=== PATIENT | female | born 1955 | race Caucasian/White ===

== ENCOUNTER → 2017-01-23 | Outpatient (REF) | payer OTHER ==
[~2017-01-23] MED LIST: *PREMTA OR; /PANT40TA OR; ANAS1TAB PO; CALC600T57 PO; FISH1000 OR; GABA-282 PO; LEVOTAB10 PO; LOVA10TA OR; MULTCAP8 PO; NORC1TAB4 PO; PANT40TA2 PO; PREM0.6254 PO; TRIA37.53 PO; VITA20008 PO; VITACAP31 OR; [UNRECOGNIZED DRUG - OTHER] OR
== END ==
LOC: M LAB REF 18:24
PROVIDERS: ATTEND Internal Medicine Medical Oncology
DX: C50.919 Malignant neoplasm of unspecified site of unspecified female breast (principal)

== ENCOUNTER → 2017-01-30 | Outpatient (CLI) | payer BC, OTHER ==
--- NOTE | 2017-01-30 15:03 | REP ---
Chest x-ray: Two views. History: Malignant neoplasm of the breast. Comparison study: November 02, 2015. Findings: The patient is status post bilateral mastectomy implantation of bilateral tissue expanders. The lungs are well inflated and otherwise clear. There are old healed rib fractures on the right anteriorly. The pleural angles are sharp. Heart size is normal. Pulmonary vasculature is not increased. Impression: Status post bilateral mastectomy and tissue bead wrapper implants. No active disease. Signed by Enrique Bailey MD 01/30/2017 03:09 P
[2017-01-30 17:52] LABS: INR 0.88
[2017-01-30 20:07] LABS: ANION GAP 6 MEQ/L (8-16); BLOOD UREA NITROGEN 20 MG/DL (7-18); CALCIUM LEVEL 9.6 MG/DL (8.8-10.2); CARBON DIOXIDE LEVEL 30 MEQ/L (21-32); CHLORIDE LEVEL 105 MEQ/L (98-107); CREATININE FOR GFR 0.68 MG/DL (0.55-1.02); GLOMERULAR FILTRATION RATE > 60.0 (>45); GLUCOSE, FASTING 91 MG/DL (80-110); POTASSIUM SERUM 4.8 MEQ/L (3.5-5.1); SODIUM LEVEL 141 MEQ/L (136-145)
== END ==
LOC: M SMT 11:51
PROVIDERS: ATTEND Thoracic Surgery (Cardiothoracic Vascular Surgery)
DX: Z01.818 Encounter for other preprocedural examination (principal); C50.912 Malignant neoplasm of unspecified site of left female breast; C50.211 Malignant neoplasm of upper-inner quadrant of right female breast; Z90.13 Acquired absence of bilateral breasts and nipples

== ENCOUNTER 2017-01-31 12:20 | Day surgery (SDC) | payer BC, OTHER ==
[~2017-01-31] VITALS: Ht 152.4 cm; Wt 73.9 kg
[~2017-01-31 12:20] MED LIST changes: -ANAS1TAB PO; +LIDOCAINE 2% INJ 100 MG/5 ML SDV (FOR ANES.) As Ordered ONE; +MIDAZOLAM INJ 2 MG/2 ML VIAL (J2250) As Ordered ONE; +ONDANSETRON 4MG/2ML VIAL (J2405) As Ordered ONE; +PROPOFOL 200 MG/20 ML VIAL As Ordered ONE; +fentaNYL 100 MCG/2 ML INJECTION (J3010) As Ordered ONE
[2017-01-31] MEDS ORDERED: MUPIROCIN 2% OINT 22 GM TUBE TOP ONE (12:45)
[2017-01-31] MEDS ORDERED: LIDOCAINE 1% SDV 5 ML VIAL SQ ONE (14:30)
[2017-01-31] MEDS ORDERED: LR 1,000 ML IV ONE (14:30)
[2017-01-31] MEDS ORDERED: BUPIVACAINE LIPOSOME/PF 1.3% 20 ML VIAL (13.3MG/ML)(EXPAREL) As Ordered ONE (14:58)
[2017-01-31] MEDS ORDERED: LIDOCAINE 1% MDV 20ML VIAL As Ordered ONE (14:58)
[2017-01-31] MEDS ORDERED: HEPARIN SOD (PORCINE) 5000 UNITS/ML VIAL As Ordered ONE (14:58)
--- NOTE | 2017-01-31 15:10 | ECGEPIP ---
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
--- NOTE | 2017-01-31 16:27 | REP ---
Partial chest x-ray: Two views: History: Abnormal x-ray. 15 seconds of fluoroscopy time is reported. Findings: A sequence of two last image hold fluoroscopic spot radiographs of the chest document Xnyuoi-M-Zpeg catheter position. Signed by Enrique Bailey MD 01/31/2017 04:57 P
--- NOTE | 2017-01-31 16:58 | REP ---
Chest one-view HISTORY: Bgjqje-Q-Svxg insertion Comparison: 01/30/2017 The lungs are clear. The heart is normal in size. The pulmonary vasculature is normal in appearance. The patient is status post Nugoar-N-Mtmc insertion in the right atrium. There is no pneumothorax. The patient is status post bilateral mastectomy. Impression: No acute disease. Signed by Pierre Wiley MD 01/31/2017 04:46 P
[2017-01-31] MEDS ORDERED: PERCOCET 5MG/325MG TAB PO PRN (18:00)
--- NOTE | 2017-02-02 09:17 | RO ---
DATE OF PROCEDURE: 01/31/2017 PREPROCEDURE DIAGNOSES: Breast cancer, need for vascular access for chemotherapy. POSTPROCEDURE DIAGNOSES: Breast cancer, need for vascular access for chemotherapy. PROCEDURE: Insertion of a right subclavian Otuydz-C-Cfpr with fluoroscopic control. SURGEON: Dong Church MD FOUR SLIDE MACHINE SETTER: ANESTHESIA: FINDINGS: All contours were smooth at the end of the procedure. DESCRIPTION OF PROCEDURE: Under satisfactory monitored anesthesia care (MAC) anesthesia, the patient was prepped and draped in the usual sterile fashion. The subclavian vein was found on the second pass, and a wire was placed without difficulty and confirmed with fluoroscopy. The subclavian fossa was infiltrated with 1% Xylocaine. The port site was chosen so as to generously clear her tissue expanders. Infiltrated with Exparel, incision was made, and a subcutaneous pocket was created using electrocautery and blunt dissection. Hemostasis was achieved. The wire site was incised and dilated. A peel-away introducer was placed. The wire was removed, and the catheter was placed with the peel-away introducer, which was itself removed. A tunnel was created from between the port site and the wire site. The catheter was pulled through the tunnel and positioned under fluoroscopic control at the junction of the superior vena cava and the right atrium. The catheter was cut to the appropriate size. The collar was placed, and the port was connected. It was flushed with saline and flushed well. A final flush of 100 units per mL of heparin was then instilled. The port was then secured to the chest wall with two 2-0 silk sutures. The subcutaneous tissue was closed with running 3-0 Vicryl suture, and the skin was closed with running 4-0 Monocryl subcuticular suture. The patient tolerated the procedure well and left the operating room in satisfactory condition. A chest x-ray is pending.
[2017-02-28] MEDS ORDERED: ANAS1TAB PO (14:41)
== END 2017-01-31 17:15 | disposition home or self-care (01) ==
LOC: M SDC 12:20
PROVIDERS: ATTEND Thoracic Surgery (Cardiothoracic Vascular Surgery)
DX: Z45.2 Encounter for adjustment and management of vascular access device (principal); C50.912 Malignant neoplasm of unspecified site of left female breast; Z90.13 Acquired absence of bilateral breasts and nipples; K21.9 Gastro-esophageal reflux disease without esophagitis; G89.28 Other chronic postprocedural pain; K44.9 Diaphragmatic hernia without obstruction or gangrene; J42 Unspecified chronic bronchitis; I10 Essential (primary) hypertension; K58.9 Irritable bowel syndrome, unspecified; J30.9 Allergic rhinitis, unspecified; Z87.891 Personal history of nicotine dependence; Z88.8 Allergy status to other drugs, medicaments and biological substances; Z88.3 Allergy status to other anti-infective agents; Z79.899 Other long term (current) drug therapy
CPT/HCPCS: 36561; 71010; 76000; 93005; C1788; J0690; J2250; J2405; J3010

== ENCOUNTER → 2017-02-02 | Outpatient (CLI) | payer BC, OTHER ==
[~2017-02-02] MED LIST changes: +ANAS1TAB PO; +GASTROGRAFIN SOLUTION 30ML (Q9963) As Ordered ONE; +ISOVUE-370 76% 100ML VIAL (Q9967) As Ordered ONE; -LIDOCAINE 2% INJ 100 MG/5 ML SDV (FOR ANES.) As Ordered ONE; -MIDAZOLAM INJ 2 MG/2 ML VIAL (J2250) As Ordered ONE; -ONDANSETRON 4MG/2ML VIAL (J2405) As Ordered ONE; -PROPOFOL 200 MG/20 ML VIAL As Ordered ONE; -fentaNYL 100 MCG/2 ML INJECTION (J3010) As Ordered ONE
--- NOTE | 2017-02-02 18:01 | REP ---
CT abdomen pelvis without and with IV contrast: With oral contrast: History: Staging for breast carcinoma. Comparison study: 03/11/2011. CT contrast dose: 100 ml of intravenous Isovue 370. CT findings: The patient is status post bilateral mastectomy with implantation of tissue expanders. The lung bases show minimal pleuroparenchymal fibrosis on the right but otherwise clear. No pleural effusion is seen. The liver and the spleen are normal in size homogeneous in texture on pre and postcontrast images. No adrenal lesion is seen. Pancreas is unremarkable. Kidneys enhance symmetrically are morphologically intact. A normal appendix is seen in the subhepatic space. No gallbladder abnormality is observed. Small and large intestinal bowel loops are normal in the abdomen and pelvis. The uterus is tipped to the right. No uterine or ovarian abnormality is seen. Urinary bladder is intact. No free fluid is seen. No abdominal wall defect noted. Bone window settings show no lytic or blastic bony destructive lesion. Impression: No significant abdominal or pelvic abnormality. Signed by Enrique Bailey MD 02/03/2017 08:32 A
== END ==
LOC: M RAD 15:02
PROVIDERS: ATTEND Internal Medicine Medical Oncology
DX: C50.919 Malignant neoplasm of unspecified site of unspecified female breast (principal)
CPT/HCPCS: 74178; Q9963; Q9967

== ENCOUNTER → 2017-02-06 | Outpatient (CLI) | payer BC, OTHER ==
[~2017-02-06] MED LIST changes: -GASTROGRAFIN SOLUTION 30ML (Q9963) As Ordered ONE; -ISOVUE-370 76% 100ML VIAL (Q9967) As Ordered ONE
--- NOTE | 2017-02-06 20:18 | REP ---
Clinical: Chest pain. History of breast cancer. Technique: PA and lateral. Comparison: 01 30 17. Findings: Srcyvt-U-Yamw identified with tip in the SVC. Bilateral mammoplasty. Mediastinum and cardiac silhouette normal. Lung barrera demonstrate chronic-appearing changes. No obvious consolidation, effusion, or pneumothorax. Skeletal structures are intact. Impression: Chronic stable changes. No obvious acute cardiopulmonary process appreciated. Signed by Alexander Costa MD 02/06/2017 08:10 P
== END ==
LOC: M SMT 10:17
PROVIDERS: ATTEND Thoracic Surgery (Cardiothoracic Vascular Surgery)
DX: C50.211 Malignant neoplasm of upper-inner quadrant of right female breast (principal); Z95.828 Presence of other vascular implants and grafts; Z98.82 Breast implant status

== ENCOUNTER → 2017-02-08 | Outpatient (CLI) | payer BC, OTHER ==
--- NOTE | 2017-02-08 23:16 | ECHO ---
DATE OF PROCEDURE: 02/08/2017 REFERRING PHYSICIAN: Daisha Kamara MD INDICATION: Chemotherapy drugs that may affect the heart. HEIGHT: 60 inches WEIGHT: 164 pounds 2D MEASUREMENTS: Left atrium: 3.8 cm Ventricular septum: 1.16 cm Posterior wall: 1.16 cm Left ventricle diastole: 3.9 cm Aortic root: 2.7 cm LVOT: 1.9 cm Inferior vena cava: 1.95 cm DOPPLER MEASUREMENTS: Aortic valve velocity: 142 cm/s LVOT: 108 cm/s LVOT VTI: 25.8 cm Mitral E velocity: 111 cm/s Mitral A velocity: 96.7 cm/s Mitral deceleration time: 144 ms Very mild tricuspid regurgitation. Trace pulmonic regurgitation. Pulmonary artery systolic [id number] mmHg by pulmonary acceleration time method. MITRAL ANNULAR TISSUE DOPPLER: E prime lateral: 11.0 cm/s DESCRIPTION: Rhythm was sinus. This is a moderately technically difficult echocardiogram. This is a 2D, M-mode, color flow Doppler and pulse wave Doppler examination that included mitral annular tissue Doppler. CONCLUSIONS: 1. Normal left ventricle internal dimensions and wall thickness. Normal regional left ventricle (LV) wall motion and wall thickening. Normal LV systolic function. Left ventricular ejection fraction (LVEF) 60-65% by visual estimate. Normal LV diastolic function. 2. Very mild aortic valve sclerosis of a three-cuspid aortic valve. 3. No pericardial effusion.
== END ==
LOC: M CARPUL 08:26
PROVIDERS: ATTEND Internal Medicine Medical Oncology
DX: C50.919 Malignant neoplasm of unspecified site of unspecified female breast (principal); R94.31 Abnormal electrocardiogram [ECG] [EKG]

== ENCOUNTER → 2017-02-27 | Outpatient (CLI) | payer BC, OTHER ==
--- NOTE | 2017-02-27 11:05 | REP ---
Chest x-ray: Two views. History: Malignant neoplasm of the breast. Comparison chest x-ray: February 06, 2017. Findings: A right-sided Craums-P-Ttfv catheter is seen with its tip terminating in the region of the right atrium unchanged. Bilateral breast tissue re-expanders are noted. Post mastectomy. There are old healed rib fractures on the right as before. No infiltrate is seen in the lung barrera. Pleural angles are sharp. Heart is not enlarged. Impression: No active disease. Xbtwmm-H-Qwdi catheter tip in the region of the right atrium. Signed by Enrique Bailey MD 02/27/2017 12:15 P
== END ==
LOC: M SMT 09:58
PROVIDERS: ATTEND Thoracic Surgery (Cardiothoracic Vascular Surgery)
DX: C50.912 Malignant neoplasm of unspecified site of left female breast (principal)

== ENCOUNTER 2017-03-02 09:27 | Day surgery (SDC) | payer BC, OTHER ==
[~2017-03-02] VITALS: Ht 152.4 cm; Wt 76.1 kg
[2017-03-02] MEDS ORDERED: BUPIVACAINE LIPOSOME/PF 1.3% 20 ML VIAL (13.3MG/ML)(EXPAREL) As Ordered ONE (09:46)
[2017-03-02] MEDS ORDERED: ceFAZolin 2 GM/D5W 50 ML IV BAG (J0690) As Ordered ONE (09:51)
[2017-03-02] MEDS ORDERED: LR 1,000 ML IV ONE (10:00)
[2017-03-02] MEDS ORDERED: MUPIROCIN 2% OINT 22 GM TUBE TOP ONE (10:00)
[2017-03-02] MEDS ORDERED: LIDOCAINE 1% SDV 5 ML VIAL SQ PRN (10:00)
[2017-03-02] MEDS ORDERED: MIDAZOLAM INJ 2 MG/2 ML VIAL (J2250) As Ordered ONE (11:11)
[2017-03-02] MEDS ORDERED: PROPOFOL 200 MG/20 ML VIAL As Ordered ONE ×2 (11:11→11:23)
[2017-03-02] MEDS ORDERED: LIDOCAINE 2% INJ 100 MG/5 ML SDV (FOR ANES.) As Ordered ONE (11:11)
[2017-03-02] MEDS ORDERED: fentaNYL 100 MCG/2 ML INJECTION (J3010) As Ordered ONE (11:11)
[2017-03-02 12:45] VITALS: BP 158/77
--- NOTE | 2017-03-02 13:50 | REP ---
Portable chest, single AP view, patient sitting: Comparison is 02/27/2017. The lung barrera are clear. Cardiac size is normal. The mary anne, mediastinum, and bony thorax are unremarkable. Impression: Negative portable chest. Sign taking Signed by Toi Fields MD 03/02/2017 01:41 P
--- NOTE | 2017-03-02 15:32 | RO ---
DATE OF PROCEDURE: 03/02/2017 PREPROCEDURE DIAGNOSIS: Retained Infusaport. POSTPROCEDURE DIAGNOSIS: Retained Infusaport SURGEON: Dong Church MD WELD INSPECTOR: ANESTHESIA: PROCEDURE: Removal of right Infusaport. DESCRIPTION OF PROCEDURE: Under satisfactory MAC anesthesia, the patient was prepped and draped in the usual sterile fashion. Exparel was infiltrated in and around the Infusaport. Incision was made and carried down to the capsule. Infusaport was closed and the catheter was removed in toto. The anchoring sutures were cut and the port was removed. There was no glistening capsule. After achieving adequate hemostasis, the wound was closed with running #3-0 Vicryl subcutaneous suture and the skin was closed with running #4-0 Monocryl subcuticular suture. The patient tolerated the procedure well and left the operating room in satisfactory condition to the recovery room.
== END 2017-03-02 12:50 | disposition home or self-care (01) ==
LOC: M SDC 09:27
PROVIDERS: ATTEND Thoracic Surgery (Cardiothoracic Vascular Surgery)
DX: Z45.2 Encounter for adjustment and management of vascular access device (principal); C50.912 Malignant neoplasm of unspecified site of left female breast; K21.9 Gastro-esophageal reflux disease without esophagitis; K52.9 Noninfective gastroenteritis and colitis, unspecified; R09.82 Postnasal drip; K44.9 Diaphragmatic hernia without obstruction or gangrene; I10 Essential (primary) hypertension; K58.9 Irritable bowel syndrome, unspecified; Z88.1 Allergy status to other antibiotic agents; Z88.5 Allergy status to narcotic agent; Z88.6 Allergy status to analgesic agent; Z88.8 Allergy status to other drugs, medicaments and biological substances; Z91.048 Other nonmedicinal substance allergy status; Z79.899 Other long term (current) drug therapy; Z87.891 Personal history of nicotine dependence; Z98.51 Tubal ligation status; Z78.0 Asymptomatic menopausal state; Z90.11 Acquired absence of right breast and nipple; Z90.12 Acquired absence of left breast and nipple
CPT/HCPCS: 36590; 71010; J0690; J2250; J3010

== ENCOUNTER → 2017-04-04 | Outpatient (CLI) | payer BC, OTHER ==
--- NOTE | 2017-04-04 10:31 | REP ---
Right hand four views: There are no comparisons. There is joint space narrowing of the DIP and PIP articulations compatible with early osteoarthritis. The MCP articulations and carpal articulations are unremarkable. Mineralization is normal. There is no fracture or dislocation. No calcifications or foreign bodies. Impression: Mild PIP and DIP joint space narrowing compatible with early osteoarthritis. Otherwise, negative right hand. Signed by Toi Fields MD 04/04/2017 10:23 A
== END ==
LOC: M SMT 09:13
PROVIDERS: ATTEND Physician Assistant Medical
DX: M19.041 Primary osteoarthritis, right hand (principal)

== ENCOUNTER → 2017-04-24 | Outpatient (CLI) | payer BC ==
--- NOTE | 2017-04-25 08:55 | DEXA ---
AP SPINE L1 - L4 0.945 -2.0 -0.6 LT FEMUR TOTAL 0.804 -1.6 -0.6 RT FEMUR TOTAL 0.724 -2.2 -1.2 TOTAL BODY TOTAL OTHER DUAL FEMUR FRAX* ASSESSMENT Risk factors: 10 year probability of fracture Major osteoporotic fracture % Hip fracture % COMMENTS: There is low bone density of the spine and hips. The increased density of the spine does not represent a significant change. The decreased density of the left hip does represent a significant change. The decreased density of the right hip does represent a significant change. The density of the spine has decreased 2.3% since the initial exam on 2005. The spine density has increased 0.2% since the most recent exam on 09/08/2011. The density of the left hip has decreased 4.6% since the initial exam on 2005. The density of the left hip has decreased 2.5% since the most recent exam on . The density of the right hip has decreased 9.8% since the initial exam on 2005. The density of the right hip has decreased 5.9% since the most recent exam on . FOLLOW-UP: Recommendation for the next bone density exam: 2 years. DARIEL
== END ==
LOC: M WHC 09:44
PROVIDERS: ATTEND Internal Medicine Medical Oncology
DX: C50.919 Malignant neoplasm of unspecified site of unspecified female breast (principal); Z79.899 Other long term (current) drug therapy

== ENCOUNTER → 2017-11-11 | Outpatient (CLI) | payer BC ==
[2017-11-11 12:36] LABS: BASO # 0.1 10^3/uL (0.0-0.2); BASO % 0.7 % (0.0-1.0); EOS # 0.3 10^3/uL (0.0-0.50); EOS % 3.2 % (0.0-3.0); HEMATOCRIT 38.9 % (36.0-47.0); HEMOGLOBIN 12.9 g/dl (12.0-15.5); IMMATURE GRANULOCYTE % 0.2 % (0-3.0); LYMPH # 3.1 10^3/uL (1.5-4.5); LYMPH % 34.5 % (24.0-44.0); MEAN CORPUSCULAR HEMOGLOBIN 28.5 pg (27.0-33.0); MEAN CORPUSCULAR HGB CONC 33.2 g/dl (32.0-36.5); MEAN CORPUSCULAR VOLUME 86.1 fl (80.0-96.0); MONO # 0.6 10^3/uL (0.0-0.8); MONO % 6.8 % (0.0-5.0); NEUTROPHILS # 4.9 10^3/uL (1.8-7.7); NEUTROPHILS % 54.6 % (36.0-66.0); PLATELET COUNT, AUTOMATED 366 10^3/uL (150-450); RED BLOOD COUNT 4.52 10^6/uL (4.00-5.40); RED CELL DISTRIBUTION WIDTH 12.4 % (11.5-14.5)
[2017-11-11 13:05] LABS: ALBUMIN 3.9 GM/DL (3.2-5.2); ALBUMIN/GLOBULIN RATIO 1.18 (1.00-1.93); ALKALINE PHOSPHATASE 172 U/L (45-117); ALT/SGPT 52 U/L (12-78); ANION GAP 6 MEQ/L (8-16); AST/SGOT 20 U/L (7-37); BILIRUBIN,TOTAL 0.3 MG/DL (0.2-1.0); BLOOD UREA NITROGEN 21 MG/DL (7-18); CALCIUM LEVEL 9.2 MG/DL (8.8-10.2); CARBON DIOXIDE LEVEL 29 MEQ/L (21-32); CHLORIDE LEVEL 106 MEQ/L (98-107); CHOLESTEROL LEVEL 232 MG/DL (<200); CHOLESTEROL RISK RATIO 4.296 (<5); CREATININE FOR GFR 0.65 MG/DL (0.55-1.30); GLOMERULAR FILTRATION RATE > 60.0 (>45); GLUCOSE, FASTING 91 MG/DL (70-100); HDL CHOLESTEROL 54 MG/DL (>40); LDL CHOLESTEROL 132.8 MG/DL (<100); NON-HDL-C 178 MG/DL; POTASSIUM SERUM 3.9 MEQ/L (3.5-5.1); SODIUM LEVEL 141 MEQ/L (136-145); THYROID STIMULATING HORMONE 0.652 uIU/ML (0.358-3.740); TOTAL PROTEIN 7.2 GM/DL (6.4-8.2); TRIGLYCERIDES LEVEL 226 MG/DL (<150)
== END ==
LOC: M LAB 11:46
DX: I11.9 Hypertensive heart disease without heart failure (principal); E78.2 Mixed hyperlipidemia; K21.9 Gastro-esophageal reflux disease without esophagitis
CPT/HCPCS: 84443

== ENCOUNTER → 2018-01-05 | Outpatient (CLI) | payer BC, OTHER ==
[2018-01-05 13:41] LABS: BASO # 0.1 10^3/uL (0.0-0.2); BASO % 0.7 % (0.0-1.0); EOS # 0.3 10^3/uL (0.0-0.50); EOS % 3.3 % (0.0-3.0); HEMATOCRIT 38.4 % (36.0-47.0); HEMOGLOBIN 12.4 g/dl (12.0-15.5); IMMATURE GRANULOCYTE % 0.5 % (0-3.0); LYMPH # 2.5 10^3/uL (1.5-4.5); LYMPH % 28.8 % (24.0-44.0); MEAN CORPUSCULAR HEMOGLOBIN 28.2 pg (27.0-33.0); MEAN CORPUSCULAR HGB CONC 32.3 g/dl (32.0-36.5); MEAN CORPUSCULAR VOLUME 87.3 fl (80.0-96.0); MONO # 0.5 10^3/uL (0.0-0.8); MONO % 6.2 % (0.0-5.0); NEUTROPHILS # 5.3 10^3/uL (1.8-7.7); NEUTROPHILS % 60.5 % (36.0-66.0); PLATELET COUNT, AUTOMATED 382 10^3/uL (150-450); RED CELL DISTRIBUTION WIDTH 13.2 % (11.5-14.5); WHITE BLOOD COUNT 8.7 10^3/uL (4.0-10.0)
[2018-01-05 14:07] LABS: ALBUMIN 3.9 GM/DL (3.2-5.2); ALBUMIN/GLOBULIN RATIO 1.11 (1.00-1.93); ALKALINE PHOSPHATASE 171 U/L (45-117); ALT/SGPT 59 U/L (12-78); ANION GAP 8 MEQ/L (8-16); AST/SGOT 31 U/L (7-37); BILIRUBIN,TOTAL 0.3 MG/DL (0.2-1.0); BLOOD UREA NITROGEN 22 MG/DL (7-18); C REACTIVE PROTEIN QUANTITATIV 0.47 MG/DL (0.00-0.30); CALCIUM LEVEL 9.2 MG/DL (8.8-10.2); CARBON DIOXIDE LEVEL 29 MEQ/L (21-32); CHLORIDE LEVEL 105 MEQ/L (98-107); GLOMERULAR FILTRATION RATE > 60.0 (>45); GLUCOSE, FASTING 86 MG/DL (70-100); POTASSIUM SERUM 4.2 MEQ/L (3.5-5.1); RHEUMATOID FACTOR QUANT < 10.0 IU/ML (<15.0); SODIUM LEVEL 142 MEQ/L (136-145); TOTAL PROTEIN 7.4 GM/DL (6.4-8.2); URIC ACID 4.1 MG/DL (2.6-6.0)
[2018-01-05 14:21] LABS: ERYTHROCYTE SEDIMENTATION RATE 27 mm/hr (0-30)
[2018-01-09 00:07] LABS: CYCLIC CITRULLINATED PEPTIDE 4 units (0-19)
[2018-01-09 00:07] LABS: Lyme Disease IgG/IgM Antibodie <0.91 ISR (0.00-0.90); Lyme Disease IgM Ab Quantitati <0.80 index (0.00-0.79)
== END ==
LOC: M SMT 11:10
DX: M79.604 Pain in right leg (principal)
CPT/HCPCS: 84550

== ENCOUNTER → 2018-10-03 | Outpatient (REF) | payer OTHER ==
[~2018-10-03] MED LIST changes: -/PANT40TA OR; -ANAS1TAB PO; +ANAS1TAB2 PO; -GABA-282 PO; +GABA-843 PO; -NORC1TAB4 PO; +NORC1TAB7 PO; -PANT40TA2 PO; +PANT40TA3 PO; +PROT1TAB2 OR
== END ==
LOC: M LAB REF 18:11
PROVIDERS: ATTEND Family Medicine
DX: R82.90 Unspecified abnormal findings in urine (principal)

== ENCOUNTER → 2018-10-16 | Outpatient (CLI) | payer OTHER ==
[2018-10-16 12:19] LABS: BASO # 0.1 10^3/uL (0.0-0.2); BASO % 0.5 % (0.0-1.0); EOS # 0.3 10^3/uL (0.0-0.50); EOS % 2.7 % (0.0-3.0); HEMATOCRIT 44.1 % (36.0-47.0); HEMOGLOBIN 14.2 g/dl (12.0-15.5); LYMPH # 2.4 10^3/uL (1.5-4.5); LYMPH % 21.2 % (24.0-44.0); MEAN CORPUSCULAR HEMOGLOBIN 27.7 pg (27.0-33.0); MEAN CORPUSCULAR HGB CONC 32.2 g/dl (32.0-36.5); MEAN CORPUSCULAR VOLUME 86.1 fl (80.0-96.0); MONO % 9.3 % (0.0-5.0); NEUTROPHILS # 7.4 10^3/uL (1.8-7.7); NEUTROPHILS % 66.1 % (36.0-66.0); PLATELET COUNT, AUTOMATED 345 10^3/uL (150-450); RED BLOOD COUNT 5.12 10^6/uL (4.00-5.40); WHITE BLOOD COUNT 11.2 10^3/uL (4.0-10.0)
[2018-10-16 12:54] LABS: ALBUMIN 3.9 GM/DL (3.2-5.2); ALT/SGPT 36 U/L (12-78); AMYLASE 27 U/L (25-115); BILIRUBIN,TOTAL 0.5 MG/DL (0.2-1.0); BLOOD UREA NITROGEN 8 MG/DL (7-18); C REACTIVE PROTEIN QUANTITATIV 3.65 MG/DL (0.00-0.30); CALCIUM LEVEL 9.3 MG/DL (8.8-10.2); CARBON DIOXIDE LEVEL 29 MEQ/L (21-32); CHLORIDE LEVEL 104 MEQ/L (98-107); CREATININE FOR GFR 0.79 MG/DL (0.55-1.30); GLOMERULAR FILTRATION RATE > 60.0 (>45); GLUCOSE, FASTING 92 MG/DL (70-100); POTASSIUM SERUM 4.1 MEQ/L (3.5-5.1); SODIUM LEVEL 141 MEQ/L (136-145); TOTAL PROTEIN 7.7 GM/DL (6.4-8.2)
== END ==
LOC: M SMT 11:10
PROVIDERS: ATTEND Physician Assistant
DX: R47.02 Dysphasia (principal)

== ENCOUNTER → 2018-10-24 | Outpatient (CLI) | payer OTHER ==
[2018-10-24 14:23] LABS: % LABILE ALKALINE PHOSPHATASE 87.1 %; C REACTIVE PROTEIN QUANTITATIV 0.45 MG/DL (0.00-0.30); LABILE ALKPHOS 122 U/L; RHEUMATOID FACTOR QUANT < 10.0 IU/ML (<15.0); STABLE ALKPHOS 18 U/L
[2018-10-26 00:06] LABS: ANTINUCLEAR ANTIBODIES DIRECT Negative (Negative); CYCLIC CITRULLINATED PEPTIDE 2 units (0-19)
== END ==
LOC: M SMT 09:53
PROVIDERS: ATTEND Family Medicine
DX: R74.8 Abnormal levels of other serum enzymes (principal); R79.82 Elevated C-reactive protein (CRP)

== ENCOUNTER → 2018-10-24 | Outpatient (CLI) | payer BC ==
--- NOTE | 2018-10-29 09:37 | DEXA ---
AP SPINE L1 - L4 0.952 -1.9 -0.4 LT FEMUR TOTAL 0.784 -1.8 -0.6 LT NECK 0.781 -1.8 -0.4 RT FEMUR TOTAL 0.711 -2.4 -1.2 RT NECK 0.711 -2.4 -0.9 TOTAL BODY TOTAL OTHER COMMENTS: There is low bone density of the spine and hips. The density of the spine has decreased 1.6% since the initial exam on 11/22/2005. The spine density has increased 0.7% since most recent exam on 04/24/2017. The density of the left hip has decreased 7.0% since the initial exam on 11/22/2005. The density of the left hip has decreased 2.5% since the most recent exam on 04/24/2017. The density of the right hip has decreased 11.5% since the initial exam on 11/22/2005. The density of the right hip has decreased 1.8% since the most recent exam on 04/24/2017. FOLLOW-UP: Recommendation for the next bone density exam: 2 years. TAWANNAD
== END ==
LOC: M WHC 14:58
PROVIDERS: ATTEND Internal Medicine
DX: M85.9 Disorder of bone density and structure, unspecified (principal); C50.212 Malignant neoplasm of upper-inner quadrant of left female breast

== ENCOUNTER → 2018-12-07 | Outpatient (CLI) | payer BC, OTHER ==
--- NOTE | 2018-12-07 14:14 | REP ---
Whole body radionuclide bone scan: The studies performed after intravenous infusion of MDP radiolabeled with 21.2 mCi of technetium 99m. Comparison is the three-phase bone scan of the ankles and feet dated 01/19/2010. There is a normal distribution of radiotracer throughout the skeleton with the exception of mildly increased uptake in the DIP joints of the hands bilaterally. This is compatible with osteoarthritis of the fingers. The mottled increased uptake noted in the right foot on the comparison study is no longer present. Impression: Essentially negative radionuclide bone scan except for mildly increased uptake in the DIP articulations of the fingers bilaterally compatible with osteoarthritis. Electronically Signed by Toi Fields MD 12/07/2018 02:05 P
== END ==
LOC: M RAD 09:17
PROVIDERS: ATTEND Family Medicine
DX: R79.82 Elevated C-reactive protein (CRP) (principal); Z85.3 Personal history of malignant neoplasm of breast
CPT/HCPCS: 78306; A9503

== ENCOUNTER → 2018-12-31 | Outpatient (CLI) | payer BC, OTHER ==
--- NOTE | 2019-01-01 04:13 | REP ---
Clinical: Knee pain with recent trauma/fall. Technique: AP, lateral, bilateral oblique and sunrise views of the right knee. Findings: Mild generalized age-related changes are appreciated including subtle sclerosis to the tibial plateau with medial and patellofemoral joint space narrowing. Tendinopathy to the quadriceps tendon with fraying along the insertion on the patella is also appreciated. There is no effusion. There is no acute fracture or dislocation. Impression: Mild generalized age-related degenerative changes. No acute fracture or dislocation. Electronically Signed by Alexander Costa MD 01/01/2019 04:05 A
== END ==
LOC: M SMT 13:44
PROVIDERS: ATTEND Physician Assistant
DX: M17.12 Unilateral primary osteoarthritis, left knee (principal); S86.912A Strain of unspecified muscle(s) and tendon(s) at lower leg level, left leg, initial encounter; W01.0XXA Fall on same level from slipping, tripping and stumbling without subsequent striking against object, initial encounter; Y92.9 Unspecified place or not applicable

== ENCOUNTER → 2019-11-14 | Outpatient (CLI) | payer MEDICARE, BC ==
--- NOTE | 2019-11-25 10:24 | DEXA ---
AP SPINE L1 - L4 0.941 -2.0 -0.4 LT FEMUR TOTAL 0.827 -1.4 -0.2 LT NECK 0.806 -1.7 -0.2 RT FEMUR TOTAL 0.770 -1.9 -0.7 RT NECK 0.750 -2.1 -0.6 TOTAL BODY TOTAL OTHER COMMENTS: There is low bone density of the spine and hips. The decreased density of the spine does not represent a significant change. The increased density of the left hip does represent a significant change. The increased density of the right hip does represent a significant change. The density of the spine has decreased 2.7% since the initial exam on 11/22/2005. The decreased 1.2% since the most recent exam on 10/24/2018. The density of the left hip has decreased 1.9% since the initial exam on 11/22/2005. The density of the left hip has increased 5.5% since the most recent exam on 10/24/2018. The density of the right hip has decreased 4.1% since the initial exam on 11/22/2005. The density of the right hip has increased 8.3% since the most recent exam on 10/24/2018. FOLLOW-UP: Recommendation for the next bone density exam: 2 years. DARIEL
== END ==
LOC: M WHC 12:57
PROVIDERS: ATTEND Family Medicine
DX: M81.0 Age-related osteoporosis without current pathological fracture (principal); M85.851 Other specified disorders of bone density and structure, right thigh; M85.852 Other specified disorders of bone density and structure, left thigh; M85.88 Other specified disorders of bone density and structure, other site

== ENCOUNTER → 2019-11-22 | Outpatient (REF) | payer MEDICARE, OTHER | LOC: M LAB REF 16:43 | PROVIDERS: ATTEND Physician Assistant | DX: N39.0 Urinary tract infection, site not specified (principal) ==

== ENCOUNTER → 2020-02-06 | Outpatient (CLI) | payer MEDICARE, BC, OTHER ==
[~2020-02-06] MED LIST changes: +D31000TA2 PO; +LOVA10TA PO; +MULTTAB24 PO; +PANT40TA29 PO; -PANT40TA3 PO; +SING5CHW23 PO; +TAMO20TA8 PO
== END ==
LOC: M LABSMTC 10:14
PROVIDERS: ATTEND Anesthesiology
DX: Z03.818 Encounter for observation for suspected exposure to other biological agents ruled out (principal); Z11.59 Encounter for screening for other viral diseases
CPT/HCPCS: C9803; U0003

== ENCOUNTER 2020-02-11 11:58 | Day surgery (SDC) | payer MEDICARE, BC, OTHER ==
[~2020-02-11] VITALS: Ht 152.4 cm; Wt 72.6 kg
[~2020-02-11 11:58] MED LIST changes: +NS 1,000 ML IV ONE
[2020-02-11] MEDS ORDERED: fentaNYL 100 MCG/2 ML INJECTION (J3010) As Ordered ONE (14:09)
[2020-02-11] MEDS ORDERED: propofoL 200 MG/20 ML VIAL As Ordered ONE (14:09)
[2020-02-11] MEDS ORDERED: LIDOCAINE 2% 100MG/5ML SDV (FOR ANES.) As Ordered ONE (14:17)
[2020-02-11 15:26] VITALS: BP 175/79
--- NOTE | 2020-02-19 11:31 | ROOR ---
Patient Name: Loulou Mendez Procedure Date: 02/11/2020 2:04 PM Date of : 1955 Age: 64 Room: [facility] Gender: Female Note Status: Finalized Procedure: Upper Endoscopy + Biopsies Indications: Upper abdominal pain, Heartburn, Follow-up of Chapman's esophagus, Abdominal bloating, Dyspepsia Providers: Everardo Cui MD Referring MD: Olga CROWLEY DO Requesting Provider: Medicines: Monitored Anesthesia Care Complications: No immediate complications. Procedure: Pre-Anesthesia Assessment: - The heart rate, respiratory rate, oxygen saturations, blood pressure, adequacy of pulmonary ventilation, and response to care were monitored throughout the procedure. The Endoscope was introduced through the mouth, and advanced to the second part of duodenum. The upper GI endoscopy was accomplished without difficulty. The patient tolerated the procedure well. Findings: The Z-line was irregular and was found 35 cm from the incisors. Multiple biopsies were obtained with cold forceps for evaluation to rule out Chapman's Esophagus randomly at the gastroesophageal junction. A medium-sized hiatal hernia was present. No other significant abnormalities were identified in a careful examination of the stomach. Biopsies were taken with a cold forceps in the gastric antrum for Helicobacter pylori testing. The exam of the duodenum was otherwise normal. Impression: - Z-line irregular, 35 cm from the incisors. - Medium-sized hiatal hernia. - Multiple biopsies were obtained at the gastroesophageal junction. - Biopsies were taken with a cold forceps for Helicobacter pylori testing. - The examination was otherwise normal. Recommendation: - Patient has a contact number available for emergencies. The signs and symptoms of potential delayed complications were discussed with the patient. Return to normal activities tomorrow. Written discharge instructions were provided to the patient. - High fiber diet. - Discharge patient to home. - Follow an antireflux regimen. - Continue present medications. - Await pathology results. - Telephone GI clinic for pathology results in 1 week. - Return to referring physician. - The findings and recommendations were discussed with the patient. Everardo Cui MD Everardo Cui MD 02/11/2020 2:21:23 PM Number of Addenda: 0 Note Initiated On: 02/11/2020 2:04 PM Estimated Blood Loss: Estimated blood loss: none.
--- NOTE | 2020-02-19 11:31 | ROOR ---
Patient Name: Loulou Mendez Procedure Date: 02/11/2020 1:28 PM Date of : 1955 Age: 64 Room: [facility] Gender: Female Note Status: Finalized Procedure: Total Colonoscopy to Cecum Indications: Abdominal pain in the right lower quadrant, Change in bowel habits Providers: Everardo Cui MD Referring MD: Olga CROWLEY DO Requesting Provider: Medicines: Monitored Anesthesia Care Complications: No immediate complications. Procedure: Pre-Anesthesia Assessment: - The heart rate, respiratory rate, oxygen saturations, blood pressure, adequacy of pulmonary ventilation, and response to care were monitored throughout the procedure. The Colonoscope was introduced through the anus and advanced to the cecum, identified by appendiceal orifice and ileocecal valve. The colonoscopy was performed without difficulty. The patient tolerated the procedure well. The quality of the bowel preparation was excellent. Findings: The perianal and digital rectal examinations were normal. Non-bleeding internal hemorrhoids were found during retroflexion. The hemorrhoids were small and Grade I (internal hemorrhoids that do not prolapse). Multiple small and large-mouthed diverticula were found in the recto-sigmoid colon, sigmoid colon and descending colon. The exam was otherwise without abnormality on direct and retroflexion views. Impression: - Non-bleeding internal hemorrhoids. - Diverticulosis in the recto-sigmoid colon, in the sigmoid colon and in the descending colon. - The examination was otherwise normal on direct and retroflexion views. - No specimens collected. - The exam was otherwise normal to the cecum. Recommendation: - Patient has a contact number available for emergencies. The signs and symptoms of potential delayed complications were discussed with the patient. Return to normal activities tomorrow. Written discharge instructions were provided to the patient. - High fiber diet. - Discharge patient to home. - Continue present medications. - Repeat colonoscopy in 10 years for screening purposes. - Return to referring physician. - The findings and recommendations were discussed with the patient. Everardo Cui MD Everardo Cui MD 02/11/2020 2:44:19 PM Number of Addenda: 0 Note Initiated On: 02/11/2020 1:28 PM Estimated Blood Loss: Estimated blood loss: none.
== END 2020-02-11 15:25 | disposition home or self-care (01) ==
LOC: M OPP 11:58
PROVIDERS: ATTEND Internal Medicine Gastroenterology
DX: K64.0 First degree hemorrhoids (principal); K57.30 Diverticulosis of large intestine without perforation or abscess without bleeding; R10.31 Right lower quadrant pain; R19.4 Change in bowel habit; K22.8 Other specified diseases of esophagus; K44.9 Diaphragmatic hernia without obstruction or gangrene; K22.70 Barrett's esophagus without dysplasia; R10.10 Upper abdominal pain, unspecified; R12 Heartburn; R14.0 Abdominal distension (gaseous); Z79.899 Other long term (current) drug therapy; Z88.1 Allergy status to other antibiotic agents; Z88.5 Allergy status to narcotic agent; Z88.6 Allergy status to analgesic agent; Z86.010 Personal history of colon polyps; Z87.891 Personal history of nicotine dependence
CPT/HCPCS: 43239; 45378; 88305; J3010

== ENCOUNTER → 2020-11-05 | Outpatient (REF) | payer MEDICARE, OTHER ==
[~2020-11-05] MED LIST changes: +GABA-282 PO; -GABA-843 PO; -NS 1,000 ML IV ONE
== END ==
LOC: M LAB REF 16:52
PROVIDERS: ATTEND Physician Assistant
DX: R30.0 Dysuria (principal)

== ENCOUNTER → 2020-11-20 | Outpatient (CLI) | payer MEDICARE, BC, OTHER ==
--- NOTE | 2020-11-20 10:38 | REP ---
INDICATION: RUQ ABD PAIN. FINDINGS: Multiple ultrasonographic images of the liver show the hepatic parenchymal echo texture to appear unremarkable. There are no focal masses. There is no intrahepatic ductal dilatation. The common bile duct measures approximately 3 mm in its greatest transverse dimension. Multiple ultrasonographic images of the gallbladder show no focal or diffuse gallbladder wall thickening. There are no echogenic foci within the gallbladder lumen, which casts acoustic shadows. There is no pericholecystic edema. Images of the pancreatic region show no gross abnormality. The imaged portion of the right kidney is unremarkable. IMPRESSION: Unremarkable right upper quadrant ultrasound. No significant change from the prior exam. Accredited by the [employer] in General Ultrasound. <Electronically signed by Charlie Jamison > 11/20/20 103
== END ==
LOC: M RAD 08:11
PROVIDERS: ATTEND Physician Assistant
DX: R10.11 Right upper quadrant pain (principal)

== ENCOUNTER → 2021-03-29 | Outpatient (REF) | payer MEDICARE, BC, OTHER | LOC: M LAB REF 16:56 | PROVIDERS: ATTEND Family Medicine | DX: N76.0 Acute vaginitis (principal) ==

== ENCOUNTER → 2021-04-19 | Outpatient (REF) | payer MEDICARE, BC, OTHER | LOC: M LAB REF 17:07 | PROVIDERS: ATTEND Family Medicine | DX: N76.0 Acute vaginitis (principal) ==

== ENCOUNTER → 2021-04-28 | Outpatient (CLI) | payer MEDICARE, BC, OTHER ==
--- NOTE | 2021-04-28 14:04 | REP ---
INDICATION: EPIGASTRIC PAIN. COMPARISON: None. TECHNIQUE/RADIOTRACER AND DOSE: 1.05 mCi of technetium 99 M sulfur colloid was Cook bound to 2 scrambled eggs and given to ingest orally with 6 oz of tap water. FINDINGS: Gastric emptying T 1/2occurred at 104 minutes. This is above the normal maximum time allotted of 90 minutes. Only 40% of emptying occurred in 90 minutes as per the count density data. IMPRESSION: Delayed gastric emptying as described above. <Electronically signed by Charlie Jamison > 04/28/21 1212
== END ==
LOC: M RAD 11:38
PROVIDERS: ATTEND Family Medicine
DX: R10.9 Unspecified abdominal pain (principal)
CPT/HCPCS: 78264; A9541

== ENCOUNTER → 2022-02-09 | Outpatient (CLI) | payer MEDICARE, BC, OTHER ==
[~2022-02-09] MED LIST changes: -D31000TA2 PO; -TRIA37.53 PO; +TRIA37.577 PO; +VITA100093 PO
[2022-02-09 10:16] LABS: BASO # 0.1 10^3/uL (0.0-0.2); BASO % 0.7 % (0.0-1.0); EOS # 0.3 10^3/uL (0.0-0.5); EOS % 3.9 % (0.0-3.0); HEMATOCRIT 39.2 % (36.0-47.0); HEMOGLOBIN 12.7 g/dl (12.0-15.5); LYMPH # 2.4 10^3/uL (1.5-5.0); LYMPH % 31.6 % (24.0-44.0); MEAN CORPUSCULAR HEMOGLOBIN 28.8 pg (27.0-33.0); MEAN CORPUSCULAR HGB CONC 32.4 g/dl (32.0-36.5); MEAN CORPUSCULAR VOLUME 88.9 fl (80.0-96.0); MONO # 0.5 10^3/uL (0.0-0.8); MONO % 6.9 % (2.0-8.0); NEUTROPHILS # 4.4 10^3/uL (1.5-8.5); NEUTROPHILS % 56.6 % (36.0-66.0); PLATELET COUNT, AUTOMATED 335 10^3/uL (150-450); RED BLOOD COUNT 4.41 10^6/uL (4.00-5.40); WHITE BLOOD COUNT 7.7 10^3/uL (4.0-10.0)
[2022-02-09 11:14] LABS: ALBUMIN 3.7 GM/DL (3.2-5.2); ALT/SGPT 34 U/L (12-78); BILIRUBIN,TOTAL 0.4 MG/DL (0.2-1.0); BLOOD UREA NITROGEN 15 MG/DL (7-18); CALCIUM LEVEL 9.4 MG/DL (8.8-10.2); CARBON DIOXIDE LEVEL 31 MEQ/L (21-32); CHLORIDE LEVEL 108 MEQ/L (98-107); CREATININE FOR GFR 0.73 MG/DL (0.55-1.30); GLOMERULAR FILTRATION RATE > 60.0 (>45); GLUCOSE, FASTING 96 MG/DL (70-100); POTASSIUM SERUM 4.3 MEQ/L (3.5-5.1); SODIUM LEVEL 141 MEQ/L (136-145); TOTAL PROTEIN 7.1 GM/DL (6.4-8.2)
== END ==
LOC: M LAB 09:43
PROVIDERS: ATTEND Internal Medicine
DX: C50.212 Malignant neoplasm of upper-inner quadrant of left female breast (principal)

== ENCOUNTER → 2022-03-08 | Outpatient (REF) | payer MEDICARE, BC, OTHER | LOC: M LAB REF 17:14 | PROVIDERS: ATTEND Nurse Practitioner Adult Health | DX: N89.8 Other specified noninflammatory disorders of vagina (principal) ==

== ENCOUNTER → 2022-04-22 | Outpatient (CLI) | payer MEDICARE, BC, OTHER ==
[2022-04-22 10:59] LABS: BASO # 0.1 10^3/uL (0.0-0.2); BASO % 0.8 % (0.0-1.0); EOS # 0.3 10^3/uL (0.0-0.5); EOS % 4.1 % (0.0-3.0); HEMATOCRIT 38.8 % (36.0-47.0); HEMOGLOBIN 12.2 g/dl (12.0-15.5); LYMPH # 3.3 10^3/uL (1.5-5.0); LYMPH % 46.3 % (24.0-44.0); MEAN CORPUSCULAR HEMOGLOBIN 28.2 pg (27.0-33.0); MEAN CORPUSCULAR HGB CONC 31.4 g/dl (32.0-36.5); MEAN CORPUSCULAR VOLUME 89.8 fl (80.0-96.0); MONO # 0.5 10^3/uL (0.0-0.8); MONO % 7.3 % (2.0-8.0); NEUTROPHILS # 2.9 10^3/uL (1.5-8.5); NEUTROPHILS % 41.4 % (36.0-66.0); PLATELET COUNT, AUTOMATED 311 10^3/uL (150-450); RED BLOOD COUNT 4.32 10^6/uL (4.00-5.40); WHITE BLOOD COUNT 7.1 10^3/uL (4.0-10.0)
[2022-04-22 11:47] LABS: ALBUMIN 3.7 GM/DL (3.2-5.2); ALT/SGPT 35 U/L (12-78); BILIRUBIN,TOTAL 0.4 MG/DL (0.2-1.0); BLOOD UREA NITROGEN 15 MG/DL (7-18); CARBON DIOXIDE LEVEL 30 MEQ/L (21-32); CHLORIDE LEVEL 107 MEQ/L (98-107); CHOLESTEROL LEVEL 203 MG/DL (<200); CHOLESTEROL RISK RATIO 3.171 (<5); CREATININE FOR GFR 0.69 MG/DL (0.55-1.30); FREE T4 1.16 NG/DL (0.76-1.46); GLOMERULAR FILTRATION RATE > 60.0 (>45); GLUCOSE, FASTING 93 MG/DL (70-100); HDL CHOLESTEROL 64 MG/DL (>40); LDL CHOLESTEROL 108 MG/DL (<100); NON-HDL-C 139 MG/DL; POTASSIUM SERUM 4.3 MEQ/L (3.5-5.1); SODIUM LEVEL 140 MEQ/L (136-145); THYROID STIMULATING HORMONE 0.582 uIU/ML (0.358-3.740); TOTAL PROTEIN 6.7 GM/DL (6.4-8.2); TRIGLYCERIDES LEVEL 157 MG/DL (<150)
== END ==
LOC: M LAB 09:35
PROVIDERS: ATTEND Family Medicine
DX: E78.2 Mixed hyperlipidemia (principal)

== ENCOUNTER → 2022-05-03 | Outpatient (REF) | payer MEDICARE, OTHER | LOC: M LAB REF 17:17 | PROVIDERS: ATTEND Family Medicine | DX: N39.0 Urinary tract infection, site not specified (principal) ==

== ENCOUNTER → 2022-11-18 | Outpatient (CLI) | payer MEDICARE, BC, OTHER | LOC: M WHC 08:20 | PROVIDERS: ATTEND Nurse Practitioner Adult Health | DX: I70.90 Unspecified atherosclerosis (principal) ==

== ENCOUNTER → 2022-11-30 | Outpatient (CLI) | payer MEDICARE, BC, OTHER ==
[2022-11-30 09:34] LABS: BASO # 0.1 10^3/uL (0.0-0.2); BASO % 0.9 % (0.0-1.0); EOS # 0.4 10^3/uL (0.0-0.5); EOS % 4.7 % (0.0-3.0); HEMATOCRIT 39.2 % (36.0-47.0); HEMOGLOBIN 12.5 g/dl (12.0-15.5); MEAN CORPUSCULAR HEMOGLOBIN 28.9 pg (27.0-33.0); MEAN CORPUSCULAR HGB CONC 31.9 g/dl (32.0-36.5); MEAN CORPUSCULAR VOLUME 90.5 fl (80.0-96.0); MONO # 0.6 10^3/uL (0.0-0.8); MONO % 7.6 % (2.0-8.0); NEUTROPHILS # 3.5 10^3/uL (1.5-8.5); NEUTROPHILS % 46.5 % (36.0-66.0); PLATELET COUNT, AUTOMATED 279 10^3/uL (150-450); RED BLOOD COUNT 4.33 10^6/uL (4.00-5.40); WHITE BLOOD COUNT 7.5 10^3/uL (4.0-10.0)
[2022-11-30 09:54] LABS: ALBUMIN 3.8 G/DL (3.2-5.2); ALKALINE PHOSPHATASE 105 U/L (46-116); ALT/SGPT 27 U/L (7.0-40); AST/SGOT 13 U/L (<34); BILIRUBIN,TOTAL 0.4 MG/DL (0.3-1.2); BLOOD UREA NITROGEN 15 MG/DL (9-23); CALCIUM LEVEL 10.2 MG/DL (8.3-10.6); CARBON DIOXIDE LEVEL 30 MMOL/L (20-31); CHLORIDE LEVEL 105 MMOL/L (98-107); CHOLESTEROL LEVEL 167 MG/DL (<200); CHOLESTEROL RISK RATIO 2.65 (<5); CREATININE FOR GFR 0.64 MG/DL (0.55-1.30); GLOMERULAR FILTRATION RATE > 60.0 (>45); GLUCOSE, FASTING 88 MG/DL (74-106); LDL CHOLESTEROL 75.4 MG/DL (<100); POTASSIUM SERUM 4.7 MMOL/L (3.5-5.1); SODIUM LEVEL 141 MMOL/L (136-145); TOTAL 25(OH) VITAMIN D 58.6 NG/ML (20.0-100.0); TOTAL PROTEIN 6.6 G/DL (5.7-8.2); TRIGLYCERIDES LEVEL 143 MG/DL (<150)
[2022-11-30 09:55] LABS: FREE T4 1.17 NG/DL (0.89-1.76); THYROID STIMULATING HORMONE 1.612 uIU/ML (0.55-4.78)
== END ==
LOC: M LAB 08:39
PROVIDERS: ATTEND Family Medicine
DX: E78.2 Mixed hyperlipidemia (principal); I11.9 Hypertensive heart disease without heart failure; M81.0 Age-related osteoporosis without current pathological fracture

== ENCOUNTER → 2022-12-06 | Outpatient (CLI) | payer MEDICARE, BC, OTHER ==
[~2022-12-06] MED LIST changes: +ISOVUE-370 76% 100ML VIAL As Ordered ONE
== END ==
LOC: M RAD 08:33
PROVIDERS: ATTEND Nurse Practitioner Adult Health
DX: I70.0 Atherosclerosis of aorta (principal)
CPT/HCPCS: 74174; Q9967

== ENCOUNTER → 2022-12-16 | Outpatient (CLI) | payer MEDICARE, BC, OTHER ==
[~2022-12-16] MED LIST changes: -ISOVUE-370 76% 100ML VIAL As Ordered ONE
[2022-12-19 14:08] LABS: IgG P18 AB Absent (.); IgG P23 AB Absent (.); IgG P28 AB Absent (.); IgG P30 AB Absent (.); IgG P39 AB Present (.); IgG P41 AB Absent (.); IgG P45 AB Absent (.); IgG P66 AB Absent (.); IgG P93 AB Absent (.); IgM P23 AB Present (.); IgM P39 AB Absent (.); IgM P41 AB Absent (.); LYME IgG WB INTERPRETATION Negative (.); LYME IgM WB INTERPRETATION Negative (.)
== END ==
LOC: M LAB 13:31
PROVIDERS: ATTEND Family Medicine
DX: S30.861A Insect bite (nonvenomous) of abdominal wall, initial encounter (principal); W57.XXXA Bitten or stung by nonvenomous insect and other nonvenomous arthropods, initial encounter; Y92.009 Unspecified place in unspecified non-institutional (private) residence as the place of occurrence of the external cause

== ENCOUNTER → 2023-04-10 | Outpatient (CLI) | payer MEDICARE, BC, OTHER ==
[2023-04-10 09:25] LABS: BASO # 0.1 10^3/uL (0.0-0.2); BASO % 0.7 % (0.0-1.0); EOS # 0.2 10^3/uL (0.0-0.5); EOS % 3.3 % (0.0-3.0); HEMATOCRIT 40.8 % (36.0-47.0); HEMOGLOBIN 12.9 g/dl (12.0-15.5); LYMPH # 2.8 10^3/uL (1.5-5.0); LYMPH % 40.4 % (24.0-44.0); MEAN CORPUSCULAR HEMOGLOBIN 27.9 pg (27.0-33.0); MEAN CORPUSCULAR HGB CONC 31.6 g/dl (32.0-36.5); MEAN CORPUSCULAR VOLUME 88.3 fl (80.0-96.0); MONO # 0.4 10^3/uL (0.0-0.8); MONO % 6.3 % (2.0-8.0); NEUTROPHILS # 3.4 10^3/uL (1.5-8.5); PLATELET COUNT, AUTOMATED 346 10^3/uL (150-450); RED BLOOD COUNT 4.62 10^6/uL (4.00-5.40)
[2023-04-10 09:48] LABS: ALBUMIN 3.9 G/DL (3.2-5.2); ALKALINE PHOSPHATASE 119 U/L (46-116); ALT/SGPT 37 U/L (7.0-40); AST/SGOT 25 U/L (<34); BILIRUBIN,TOTAL 0.4 MG/DL (0.3-1.2); BLOOD UREA NITROGEN 19 MG/DL (9-23); CALCIUM LEVEL 9.6 MG/DL (8.3-10.6); CARBON DIOXIDE LEVEL 30 MMOL/L (20-31); CHLORIDE LEVEL 106 MMOL/L (98-107); CHOLESTEROL LEVEL 176 MG/DL (<200); CHOLESTEROL RISK RATIO 3.37 (<5); CREATININE FOR GFR 0.58 MG/DL (0.55-1.30); GLOMERULAR FILTRATION RATE > 60.0 (>45); GLUCOSE, FASTING 91 MG/DL (74-106); HDL CHOLESTEROL 52.1 MG/DL (>40); LDL CHOLESTEROL 92.1 MG/DL (<100); NON-HDL-C 123.9 MG/DL; POTASSIUM SERUM 4.6 MMOL/L (3.5-5.1); SODIUM LEVEL 144 MMOL/L (136-145); TRIGLYCERIDES LEVEL 159 MG/DL (<150)
[2023-04-10 09:51] LABS: THYROID STIMULATING HORMONE 1.211 uIU/ML (0.55-4.78)
[2023-04-10 09:52] LABS: FREE T4 1.19 NG/DL (0.89-1.76)
== END ==
LOC: M LAB 08:46
PROVIDERS: ATTEND Nurse Practitioner Adult Health
DX: E78.2 Mixed hyperlipidemia (principal)

== ENCOUNTER → 2023-04-19 | Outpatient (REF) | payer MEDICARE, OTHER | LOC: M LAB REF 17:08 | PROVIDERS: ATTEND Physician Assistant | DX: N39.0 Urinary tract infection, site not specified (principal) ==

== ENCOUNTER → 2023-12-21 | Outpatient (CLI) | payer MEDICARE, BC ==
[~2023-12-21] MED LIST changes: +MONT5TAB7 PO; -SING5CHW23 PO
== END ==
LOC: M WHC 09:13
PROVIDERS: ATTEND Family Medicine
DX: M81.0 Age-related osteoporosis without current pathological fracture (principal)

== ENCOUNTER → 2024-01-03 | Outpatient (CLI) | payer MEDICARE, BC | LOC: M PLAIMG 13:59 | PROVIDERS: ATTEND Family Medicine | DX: M51.16 Intervertebral disc disorders with radiculopathy, lumbar region (principal) ==

== ENCOUNTER → 2024-02-14 | Outpatient (CLI) | payer MEDICARE, BC | LOC: M PLAIMG 06:45 | PROVIDERS: ATTEND Family Medicine | DX: M51.16 Intervertebral disc disorders with radiculopathy, lumbar region (principal) ==

== ENCOUNTER → 2024-10-28 | Outpatient (CLI) | payer MEDICARE, BC ==
[~2024-10-28] MED LIST changes: +GABA-1172 PO; -GABA-282 PO; +ISOVUE-370 76% 100ML VIAL ONE
== END ==
LOC: M PLAIMG 11:07
PROVIDERS: ATTEND Family Medicine
DX: I25.10 Atherosclerotic heart disease of native coronary artery without angina pectoris (principal)
CPT/HCPCS: 74175; Q9967